=== PATIENT | female | born 1955 | race Asian ===

== ENCOUNTER → 2022-12-30 | Outpatient (CLI) | payer MEDICARE, OTHER ==
[~2022-12-30] MED LIST: JANU100T PO; JARD1TAB PO; LOSA50TA5 PO; METF10004 PO; METF500T13 PO; OMEP40CA4 PO; SIMV20TA22 PO; SYST1SOL4 OU; VITMTA PO
== END ==
LOC: M LABSMTC 10:52
PROVIDERS: ATTEND Anesthesiology
DX: Z01.812 Encounter for preprocedural laboratory examination (principal); Z11.52 Encounter for screening for COVID-19

== ENCOUNTER 2023-01-04 12:04 | Day surgery (SDC) | payer MEDICARE, OTHER ==
[~2023-01-04] VITALS: Ht 160 cm; Wt 70.3 kg
[~2023-01-04 12:04] MED LIST changes: +NS 1,000 ML IV ONE
[2023-01-04] MEDS ORDERED: LIDOCAINE 2% 100MG/5ML SDV (FOR ANES.) As Ordered ONE ×3 (12:59→14:44)
[2023-01-04] MEDS ORDERED: fentaNYL 100 MCG/2 ML INJECTION As Ordered ONE (14:44)
[2023-01-04] MEDS ORDERED: propofoL 200 MG/20 ML VIAL As Ordered ONE (14:44)
[2023-01-04 15:10] VITALS: BP 150/84
== END 2023-01-04 15:20 | disposition home or self-care (01) ==
LOC: M OPP 12:04
PROVIDERS: ATTEND Internal Medicine Gastroenterology
DX: K22.89 Other specified disease of esophagus (principal); K29.70 Gastritis, unspecified, without bleeding; E11.9 Type 2 diabetes mellitus without complications; E78.00 Pure hypercholesterolemia, unspecified; I10 Essential (primary) hypertension; Z79.2 Long term (current) use of antibiotics; Z79.84 Long term (current) use of oral hypoglycemic drugs; Z79.899 Other long term (current) drug therapy
CPT/HCPCS: 43239; 88305; J3010

== ENCOUNTER → 2023-04-23 | Outpatient (CLI) | payer MEDICARE, OTHER ==
[~2023-04-23] MED LIST changes: -NS 1,000 ML IV ONE
[2023-04-23 14:44] LABS: ALBUMIN 4.3 G/DL (3.2-5.2); BILIRUBIN,DIRECT 0.2 MG/DL (<0.4); BILIRUBIN,TOTAL 0.7 MG/DL (0.3-1.2); CHOLESTEROL RISK RATIO 2.55 (<5); LDL CHOLESTEROL 51.6 MG/DL (<100); PERCENT SATURATION 22.1 % (13.2-45.0); TOTAL PROTEIN 7.4 G/DL (5.7-8.2)
[2023-04-23 15:17] LABS: HEPATITIS C VIRUS ABY INDEX 0.1 INDEX (<0.8)
[2023-04-24 14:10] LABS: ANTI-MITOCHONDRIAL ANTIBODY <20.0 Units (0.0-20.0)
[2023-04-24 23:07] LABS: ANA (HEP2) Positive (.); HEPATITIS A IgG TOTAL Positive (Negative); LIVER-KIDNEY MICROSOMAL ABY <20.1 Units (0.0-20.0)
== END ==
LOC: M PLALAB 09:17
PROVIDERS: ATTEND Internal Medicine Gastroenterology
DX: R94.5 Abnormal results of liver function studies (principal); D50.9 Iron deficiency anemia, unspecified; E78.00 Pure hypercholesterolemia, unspecified

== ENCOUNTER → 2023-05-06 | Outpatient (CLI) | payer MEDICARE, OTHER | LOC: M RAD 10:03 | PROVIDERS: ATTEND Internal Medicine Gastroenterology | DX: R94.5 Abnormal results of liver function studies (principal) ==

== ENCOUNTER → 2025-01-23 | Outpatient (REF) | payer MEDICARE, OTHER | LOC: M LAB REF 18:30 | PROVIDERS: ATTEND Internal Medicine Endocrinology, Diabetes & Metabolism | DX: E04.2 Nontoxic multinodular goiter (principal) ==

== ENCOUNTER → 2025-10-30 | Outpatient (CLI) | payer MEDICARE, OTHER | LOC: M PLALAB 10:28 | PROVIDERS: ATTEND Internal Medicine Gastroenterology | DX: K76.0 Fatty (change of) liver, not elsewhere classified (principal) ==